=== PATIENT | male | born 1965 | race Caucasian/White ===

== ENCOUNTER 2016-11-25 09:48 | Outpatient (CLI) | payer OTHER ==
--- NOTE | 2016-11-25 12:37 | DIAGNOSTIC IMAGING REPORT ---
PROCEDURE: US ABDOMEN ULTRASOUND-COMPLETE INDICATION: Liver disease. Possible cirrhosis. Distention. Assess for ascites. TECHNIQUE: Jensen scale and color Doppler sonographic images of the abdomen were obtained. COMPARISON: None. FINDINGS: Gallbladder and common duct (2 mm) are normal. No evidence of gallstones. There is hepatomegaly with moderate increased echogenicity and heterogeneous appearance of the liver. No evidence of focal abnormality. There is normal hepatopetal flow in the portal vein. Moderate splenomegaly (16.9 cm). There is no evidence of ascites. Pancreas, kidneys (right 12.1 cm, left 12.9 cm), aorta, and inferior vena cava are normal. IMPRESSION: 1. Moderate hepatomegaly with heterogeneous appearance of the liver consistent with intrinsic liver disease 2. Moderate splenomegaly (16.9 cm). 3. No evidence of ascites. 4. Otherwise negative abdominal ultrasound. 5. Findings discussed with the patient and called to Dr. Dang.
== END 2016-11-25 23:00 | disposition home or self-care (01) ==
LOC: US SRH 09:48 → EDBD 10:00 → US SRH 10:00
DX: K70.31 Alcoholic cirrhosis of liver with ascites (principal); R16.1 Splenomegaly, not elsewhere classified